=== PATIENT | female | born 1945 | race Caucasian/White ===

== ENCOUNTER 2022-01-11 11:13 | Outpatient (CLI) | payer OTHER ==
[~2022-01-11 11:13] MED LIST: CIPRO500 MG PO; MIRALAX12 EA PO
== END 2022-01-11 11:16 | disposition home or self-care (01) ==
LOC: SONOGRAMA 11:13
PROVIDERS: ATTEND Pathology Anatomic Pathology
DX: D34 Benign neoplasm of thyroid gland (principal); E04.9 Nontoxic goiter, unspecified; E07.89 Other specified disorders of thyroid